=== PATIENT | male | born 1975 | race African-American/Black ===

== ENCOUNTER 2017-10-01 10:51 | Emergency (ER) | payer BC ==
[2017-10-01] MEDS ORDERED: ASPIRIN 81 MG TABLET, CHEWABLE PO ONE (11:00)
[2017-10-01 11:02] VITALS: BP 143/100
[2017-10-01] MEDS ORDERED: TENECTEPLASE INJ 50 MG KIT IV ONE (11:08)
[2017-10-01] MEDS ORDERED: CLOPIDOGREL BISULFATE 300 MG TABLET PO ONE (11:08)
[2017-10-01] MEDS ORDERED: NITROGLYCERIN 0.4 MG/TAB 25 TAB/BOTTLE ONE (11:12)
[2017-10-01] MEDS: NITROGLYCERIN 0.4 MG/TAB 25 TAB/BOTTLE SL PRN ×2 (11:14→11:19)
--- NOTE | 2017-10-01 11:14 | ER Document Report ---
ED Cardiac - General Chief Complaint: Chest Pain Stated Complaint: CHEST PAIN Time Seen by Provider: 10/01/17 11:00 Notes: The patient is a 42-year-old male who presents with 20 minutes of left-sided chest pressure with radiation up to the right shoulder. He was at work when this started to occur. He was not exerting himself. He has never had this in the past and does not take any medications. Denies back pain, numbness, tingling, fever, shortness of breath, leg swelling, syncope, nausea or vomiting. TRAVEL OUTSIDE OF THE [place] IN LAST 30 DAYS: No - Related Data Allergies/Adverse Reactions: peanut [Peanut] Allergy (Severe, Verified 10/01/17 10:53) Past Medical History - General Information source: Patient - Social History Smoking Status: Current Every Day Smoker Frequency of alcohol use: Occasional Drug Abuse: None Family History: Reviewed & Not Pertinent - Immunizations Hx Diphtheria, Pertussis, Tetanus Vaccination: Yes - Administered in ED Review of Systems - Review of Systems Notes: REVIEW OF SYSTEMS: CONSTITUTIONAL: -fevers, -chills EENT: -eye pain, -difficulty swallowing, -nasal congestion CARDIOVASCULAR: +chest pain, -syncope. RESPIRATORY: -cough, -SOB GASTROINTESTINAL: -abdominal pain, -nausea, -vomiting, -diarrhea GENITOURINARY: -dysuria, -hematuria MUSCULOSKELETAL: -back pain, -neck pain SKIN: -rash or skin lesions. HEMATOLOGIC: -easy bruising or bleeding. LYMPHATIC: -swollen, enlarged glands. NEUROLOGICAL: -altered mental status or loss of consciousness, -headache, - neurologic symptoms PSYCHIATRIC: -anxiety, -depression. ALL OTHER SYSTEMS REVIEWED AND NEGATIVE. Physical Exam - Vital signs Vitals: Temp Pulse Resp BP Pulse Ox 97.6 F 79 22 H 143/100 H 100 10/01/17 11:00 10/01/17 11:00 10/01/17 11:00 10/01/17 11:10/01/17 11:00 - Notes Notes: PHYSICAL EXAMINATION: GENERAL: Uncomfortable. HEAD: Atraumatic, normocephalic. EYES: Pupils equal round and reactive to light, extraocular movements intact, sclera anicteric, conjunctiva are normal. ENT: nares patent, oropharynx clear without exudates. Moist mucous membranes. NECK: Normal range of motion, supple without lymphadenopathy LUNGS: Breath sounds clear to auscultation bilaterally and equal. No wheezes rales or rhonchi. HEART: Regular rate and rhythm without murmurs ABDOMEN: Soft, nontender, normoactive bowel sounds. No guarding, no rebound. No masses appreciated. EXTREMITIES: Normal range of motion, no pitting or edema. No cyanosis. Strong distal pulses. NEUROLOGICAL: Cranial nerves grossly intact. Normal speech, normal gait. Normal sensory and motor exams. PSYCH: Normal mood, normal affect. SKIN: Warm, Dry, normal turgor, no rashes or lesions noted. Course - Re-evaluation Re-evalutation: Patient seen immediately after EKG, which showed an anterior STEMI with reciprocal changes. Symptoms are not consistent with aortic dissection at this time. Patient has no bleeding risk and he was verbally consented for TNKase. Requires transfer to facility with interventional cardiology. 10/01/17 11:05 Spoke to [facility] about STEMI. Awaiting callback. 10/01/17 11:[address] Cleveland ([facility] Client Hr Manager) and he has accepted the patient. Patient will be able to fly by helicopter. Because the patient will be in the window for label printing machinist intervention, he recommends holding off on TNKase at this time. Spoke to the patient about this and he understands. After a single nitro, his pain has subsided. Repeat EKG shows worsening ST elevations in the anterior and the lateral leads. Pt remains HD stable. 10/01/17 11:38 Transport in ED. Pt's pain improved after nitro, but still present. Fentanyl ordered and patient stable for transport. He is going immediately to [facility]'s label printing machinist. - Vital Signs Vital signs: Temp Pulse Resp BP Pulse Ox 97.6 F 79 22 H 143/100 H 100 10/01/17 11:00 10/01/17 11:00 10/01/17 11:00 10/01/17 11:00 10/01/17 11:00 - Laboratory Result Diagrams: 10/01/17 11:06 10/01/17 11:06 - Diagnostic Test Radiology reviewed: Image reviewed, Reports reviewed Radiology results interpreted by me: CXR: NAD - EKG Interpretation by Me EKG shows normal: Sinus rhythm, [place], Intervals, QRS Complexes Additional EKG results interpreted by me: ST Elevation in V2-V4 with reciprocal changes in III and aVF. Critical Care Note - Critical Care Note Total time excluding time spent on procedures (mins): 35 Discharge - Discharge Clinical Impression: STEMI (ST elevation myocardial infarction) Qualifiers: Involved coronary artery: unspecified coronary artery Qualified Code(s): I21.3 - ST elevation (STEMI) myocardial infarction of unspecified site Condition: Serious Disposition: [facility] Referrals: SALVATORE URRUTIA FNP-C [COMMUNITY BASED STAFF] - Follow up as needed
[2017-10-01 11:20] LABS: INTERNATIONAL RATION (INR) 1.05; PARTIAL THROMBOPLASTIN TIME 26.1 SEC (23.5-35.8); PROTHROMBIN TIME 14.2 SEC (11.4-15.4)
[2017-10-01] MEDS ORDERED: NITROGLYCERIN 2% OINTMENT 1 GM PACKET ONE (11:22)
[2017-10-01 11:24] LABS: HEMATOCRIT 34.3 % (37.9-51.0); HEMOGLOBIN 10.2 g/dL (13.5-17.0); MEAN CORPUSCULAR HEMOGLOBIN 18.6 pg (27.0-33.4); MEAN CORPUSCULAR HGB CONC 29.7 g/dL (32.0-36.0); PLATELET COUNT 315 10^3/uL (150-450); RED BLOOD COUNT 5.48 10^6/uL (4.35-5.55); WHITE BLOOD COUNT 5.7 10^3/uL (4.0-10.5)
[2017-10-01] MEDS ORDERED: ENOXAPARIN SODIUM INJ 100 MG/1 ML DISP.SYRIN SUBCUT ONE (11:24)
[2017-10-01] MEDS ORDERED: FENTANYL CITRATE INJ/PF 100 MCG/2 ML AMPUL IV ONE (11:28)
[2017-10-01 11:44] LABS: ANION GAP 17 (5-19); BLOOD UREA NITROGEN 12 mg/dL (7-20); CALCIUM 9.7 mg/dL (8.4-10.2); CARBON DIOXIDE 20 mmol/L (22-30); CHLORIDE 106 mmol/L (98-107); CREATINE KINASE 854 U/L (55-170); GLUCOSE 189 mg/dL (75-110); POTASSIUM 4.2 mmol/L (3.6-5.0); SODIUM 142.5 mmol/L (137-145)
[2017-10-01] MEDS ORDERED: ENOXAPARIN SODIUM INJ 30 MG/0.3 ML DISP.SYRIN IV ONE (11:52)
[2017-10-01 11:53] LABS: CREATINE KINASE MB 5.32 ng/mL (<4.55)
[2017-10-01 11:56] LABS: MEAN CORPUSCULAR VOLUME 63 fl (80-97)
[2017-10-01 11:57] LABS: TROPONIN I 0.323 ng/mL
[2017-10-01] MEDS ORDERED: NITROGLYCERIN 2% OINTMENT 1 GM PACKET TP ONE (11:57)
[2017-10-01] MEDS ORDERED: ENOXAPARIN SODIUM INJ 30 MG/0.3 ML DISP.SYRIN ONE (12:00)
[2017-10-01] MEDS ORDERED: CLOPIDOGREL BISULFATE 300 MG TABLET ONE (12:00)
[2017-10-01] MEDS ORDERED: ASPIRIN 81 MG TABLET, CHEWABLE ONE (12:00)
--- NOTE | 2017-10-01 12:24 | EKG REPORT ---
SEVERITY:- ABNORMAL ECG - SINUS RHYTHM ST ELEVATION, PROBABLE ANTERIOR WALL INJURY STEMI CLINICAL CORRELATION AND CARDIC BIOMARKERS NEEDED. : Confirmed by: Kamron Travis MD 01-Oct-2017 12:24:15
--- NOTE | 2017-10-01 12:26 | EKG REPORT ---
SEVERITY:- ABNORMAL ECG - SINUS RHYTHM ST ELEV, LIKELY STEMI ANT WALL : Confirmed by: Kamron Travis MD 01-Oct-2017 12:25:11
--- NOTE | 2017-10-01 12:36 | RADIOLOGY REPORT (SQ) ---
EXAM DESCRIPTION: CHEST SINGLE VIEW COMPLETED DATE/TIME: 10/01/2017 11:14 am REASON FOR STUDY: Chest Pain r/o MD COMPARISON: None. EXAM PARAMETERS: NUMBER OF VIEWS: One view. TECHNIQUE: Single frontal radiographic view of the chest acquired. RADIATION DOSE: NA LIMITATIONS: None. FINDINGS: LUNGS AND PLEURA: No opacities, masses or pneumothorax. No pleural effusion. MEDIASTINUM AND HILAR STRUCTURES: No masses. Contour normal. HEART AND VASCULAR STRUCTURES: Heart normal in size. Normal vasculature. BONES: No acute findings. HARDWARE: None in the chest. OTHER: No other significant finding. IMPRESSION: NO ACUTE RADIOGRAPHIC FINDING IN THE CHEST. TECHNICAL DOCUMENTATION: JOB ID: [id number] [employer]- All Rights Reserved Reading location - IP/workstation name: [email or web address]
[2017-10-05 09:02] LABS: PATH REVIEW PATHOLOGIST REVIEWED
== END 2017-10-01 11:42 | disposition short-term general hospital (02) ==
LOC: ER 10:51
DX: I21.3 ST elevation (STEMI) myocardial infarction of unspecified site (principal); R07.9 Chest pain, unspecified; F17.200 Nicotine dependence, unspecified, uncomplicated; Z91.010 Allergy to peanuts
CPT/HCPCS: 93005; 99291; 96372; 96374; 36415; 82553; 82550; 85027; 85610; 85730; 80048; 84484; 71045; 93010; J3490; J3010; J1650 ×2

== ENCOUNTER 2018-06-04 09:05 | Emergency (ER) | payer BC, OTHER ==
--- NOTE | 2018-06-04 09:42 | ER Document Report ---
ED General - General Chief Complaint: Rectal Bleeding Stated Complaint: RECTAL BLEEDING Time Seen by Provider: 06/04/18 09:26 Primary Care Provider: RIVERA GALLARDO [Primary Care Provider] - Follow up as needed Notes: 42-year-old male with history of acute myocardial infarction in October 2017 and chronic anemia presents to the emergency department from the [facility] for abnormal blood work. He states that he had labs drawn in [place] and results prompted the [facility] to recommend that he seek treatment in the emergency department. Patient notes that he does have rectal bleeding. He states that there is blood in the toilet that turns the water red. He denies seeing any blood within his stool. He does have a history of hemorrhoids. He does complain of straining and periodic pain with bowel movements. He complains of occasional dizziness and lightheadedness. He denies any shortness of breath or chest pain. He denies any nausea or vomiting. He does complain of bilateral hand tingling that is intermittent in nature. Patient is on Brilinta for his heart attack. TRAVEL OUTSIDE OF THE [place] IN LAST 30 DAYS: No - Related Data Allergies/Adverse Reactions: peanut [Peanut] Allergy (Severe, Verified 06/04/18 09:15) Past Medical History - Social History Smoking Status: Never Smoker Family History: Reviewed & Not Pertinent Renal/ Medical History: Denies: Hx Peritoneal Dialysis - Immunizations Hx Diphtheria, Pertussis, Tetanus Vaccination: Yes - Administered in ED Review of Systems - Review of Systems Constitutional: See HPI EENT: No symptoms reported Cardiovascular: See HPI Respiratory: See HPI Gastrointestinal: See HPI Genitourinary: No symptoms reported Male Genitourinary: No symptoms reported Musculoskeletal: No symptoms reported Skin: No symptoms reported Hematologic/Lymphatic: No symptoms reported Neurological/Psychological: No symptoms reported Physical Exam - Vital signs Vitals: Temp Pulse Resp BP Pulse Ox 98.2 F 73 18 119/77 100 06/04/18 09:18 06/04/18 09:18 06/04/18 09:18 06/04/18 09:18 06/04/18 09:18 - Notes Notes: PHYSICAL EXAMINATION: Reviewed vital signs and charting by RN GENERAL: Alert, interacts well. No acute distress. HEAD: Normocephalic, atraumatic. EYES: Pupils equal, round. Extraocular movements intact. ENT: Oral mucosa moist, tongue midline. NECK: Full range of motion. Trachea midline. LUNGS: Clear to auscultation bilaterally, no wheezes, rales, or rhonchi. No respiratory distress. HEART: Regular rate and rhythm. No murmur ABDOMEN: soft, non-tender. Non-distended. Bowel sounds present in all 4 quadrants. no McBurney's point tenderness, no Cleveland sign. EXTREMITIES: Moves all 4 extremities spontaneously. No edema, No cyanosis. NEUROLOGICAL: Alert and oriented. Normal speech. PSYCH: Normal affect, normal mood. SKIN: Warm, dry, normal turgor. No rashes or lesions noted. Course - Re-evaluation Re-evalutation: 06/04/18 09:41 Well-appearing 42-year-old male with history of heart attack last year on Brilinta presents for abnormal labs. He does complain of history of hemorrhoids and blood every time he has a bowel movement in the toilet. On exam there was a nonthrombosed hemorrhoid externally that was visualized. Rectal exam performed with nurse Yelitza in the room. Hemoccult performed and was negative for blood. Plan is to get some basic blood work. 06/04/18 11:08 CBC had hemoglobin of 7.6 with a microcytic anemia. He brought paperwork from May 14, 2018 and his hemoglobin was 7.8. His ferritin level was very low. He has known iron deficiency anemia. I called Dr. Buchanan and he stated patient could follow-up outpatient. No evidence of acute bleeding as he is heme-negative, therefore he is safe and stable to discharge home pending orthostatic vital signs. 06/04/18 11:09 06/04/18 11:28 Orthostatic vital signs were all normal. Patient showing no evidence of hemodynamic instability. Patient is stable for discharge and outpatient follow- up. - Vital Signs Vital signs: Temp Pulse Resp BP Pulse Ox 98.2 F 69 19 108/72 100 06/04/18 09:18 06/04/18 11:23 06/04/18 11:00 06/04/18 11:23 06/04/18 11:00 - Laboratory Result Diagrams: 06/04/18 10:00 06/04/18 10:00 Laboratory results interpreted by me: 06/04/18 06/04/18 10:00 10:00 RBC 3.40 L Hgb 7.6 L Hct 26.0 L MCV 76 L MCH 22.4 L MCHC 29.4 L RDW 19.2 H Chloride 109 H Discharge - Discharge Clinical Impression: Anemia Qualifiers: Anemia type: unspecified type Qualified Code(s): D64.9 - Anemia, unspecified Condition: Good Disposition: HOME, SELF-CARE Additional Instructions: You are seen in the emergency department this morning for abnormal blood work. Your blood work does show that you are anemic. It was above the transfusion threshold and because you had no symptoms and your vital signs were stable you are safe to discharge. If you do become lightheaded, pale, ashen, dizzy, or you pass out please immediately return to the emergency department. We have given you information for the surgeon that you should follow-up outpatient to discuss follow-up colonoscopy. Please continue to take your iron supplements. Please increase your fiber intake, increase her water consumption, and take a stool softener to help with your straining. If you have any other concerns please return to the emergency department. Referrals: [facility] [Primary Care Provider] - Follow up as needed
[2018-06-04 10:25] LABS: ABSOLUTE BASOPHILS # (AUTO) 0.1 10^3/uL (0.0-0.2); ABSOLUTE EOSINOPHILS # (AUTO) 0.1 10^3/uL (0.0-0.6); ABSOLUTE LYMPHOCYTES (AUTO) 0.9 10^3/uL (0.5-4.7); ABSOLUTE MONOCYTES (AUTO) 0.4 10^3/uL (0.1-1.4); BASOPHILS % (AUTO) 1.5 % (0-2); EOSINOPHILS % (AUTO) 1.5 % (0-6); LYMPHOCYTES % (AUTO) 19.7 % (13-45); MEAN CORPUSCULAR HEMOGLOBIN 22.4 pg (27.0-33.4); MEAN CORPUSCULAR HGB CONC 29.4 g/dL (32.0-36.0); MEAN CORPUSCULAR VOLUME 76 fl (80-97); MONOCYTES % (AUTO) 8.2 % (3-13); PLATELET COUNT 307 10^3/uL (150-450); RED CELL DISTRIBUTION WIDTH 19.2 % (11.5-14.0); SEGMENTED NEUTROPHILS % (AUTO) 69.1 % (42-78); TOTAL CELLS COUNTED % (AUTO) 100 %; WHITE BLOOD COUNT 4.4 10^3/uL (4.0-10.5)
[2018-06-04 10:27] LABS: HEMOGLOBIN 7.6 g/dL (13.5-17.0)
[2018-06-04 10:46] LABS: ALANINE AMINOTRANSFERASE 42 U/L (21-72); ALBUMIN 4.5 g/dL (3.5-5.0); ALKALINE PHOSPHATASE 41 U/L (38-126); ANION GAP 9 (5-19); ASPARTATE AMINO TRANSFERASE 50 U/L (17-59); BILIRUBIN,DIRECT 0.2 mg/dL (0.0-0.4); BILIRUBIN,TOTAL 0.3 mg/dL (0.2-1.3); BLOOD UREA NITROGEN 15 mg/dL (7-20); CALCIUM 8.9 mg/dL (8.4-10.2); CARBON DIOXIDE 24 mmol/L (22-30); CHLORIDE 109 mmol/L (98-107); GLUCOSE 102 mg/dL (75-110); POTASSIUM 4.2 mmol/L (3.6-5.0); SODIUM 141.5 mmol/L (137-145); TOTAL PROTEIN 6.9 g/dL (6.3-8.2)
[2018-06-04 11:41] VITALS: BP 115/93
== END 2018-06-04 11:44 | disposition home or self-care (01) ==
LOC: ER 09:05
DX: D50.9 Iron deficiency anemia, unspecified (principal); K62.5 Hemorrhage of anus and rectum; R42 Dizziness and giddiness; R20.2 Paresthesia of skin; K64.4 Residual hemorrhoidal skin tags; I25.2 Old myocardial infarction; Z79.02 Long term (current) use of antithrombotics/antiplatelets; Z91.010 Allergy to peanuts
CPT/HCPCS: 36415; 80053; 85025; 99283

== ENCOUNTER 2018-06-28 16:26 | Emergency (ER) | payer OTHER ==
--- NOTE | 2018-06-28 17:08 | ER Document Report ---
ED Medical Screen (RME) - General Chief Complaint: Abnormal Lab Results Stated Complaint: ABNORMAL LABS Time Seen by Provider: 06/28/18 17:06 Primary Care Provider: RIVERA GALLARDO [Primary Care Provider] - Follow up as needed Mode of Arrival: Ambulatory Information source: Patient Notes: Patient presents after recent blood work showed a hemoglobin of 6.7. Patient has bright red blood per rectum for several months secondary to hemorrhoids. I have greeted and performed a rapid initial assessment of this patient. A comprehensive ED assessment and evaluation of the patient, analysis of test results and completion of medical decision making process we will be contacted by additional ED providers. PHYSICAL EXAMINATION: Vital signs reviewed GENERAL: Well-appearing, well-nourished and in no acute distress. LUNGS: No respiratory distress Musculoskeletal: Normal range of motion NEUROLOGICAL: Normal speech, normal gait. PSYCH: Normal mood, normal affect. SKIN: Warm, Dry, normal turgor, no rashes or lesions noted. TRAVEL OUTSIDE OF THE [place] IN LAST 30 DAYS: No - HPI Onset: Other Quality of pain: No pain Associated Symptoms: None Exacerbated by: Denies Relieved by: Denies Similar symptoms previously: Yes Recently seen / treated by doctor: Yes - Related Data Smoking: Non-smoker Frequency of alcohol use: None Drug Abuse: None Allergies/Adverse Reactions: peanut [Peanut] Allergy (Severe, Verified 06/04/18 09:15) Past Medical History - Social History Frequency of alcohol use: Occasional Drug Abuse: None - Past Medical History Cardiac Medical History: Reports: Hx Heart Attack Renal/ Medical History: Denies: Hx Peritoneal Dialysis Past Surgical History: Reports: Hx Cardiac Catheterization, Hx Cardiac Surgery - stent x1 - Immunizations Hx Diphtheria, Pertussis, Tetanus Vaccination: Yes - Administered in ED Physical Exam - Vital signs Vitals: Temp Pulse Resp BP Pulse Ox 99.0 F 92 16 101/55 L 100 06/28/18 16:33 06/28/18 16:33 06/28/18 16:33 06/28/18 16:33 06/28/18 16:33 Course - Vital Signs Vital signs: Temp Pulse Resp BP Pulse Ox 99.0 F 92 16 101/55 L 100 06/28/18 16:33 06/28/18 16:33 06/28/18 16:33 06/28/18 16:33 06/28/18 16:33 Doctor's Discharge - Discharge Referrals: [facility] [Primary Care [facility]] - Follow up as needed
[2018-06-28 17:20] LABS: ABSOLUTE LYMPHOCYTES (AUTO) 0.6 10^3/uL (0.5-4.7); ABSOLUTE MONOCYTES (AUTO) 0.4 10^3/uL (0.1-1.4); ABSOLUTE NEUT (AUTO) 2.5 10^3/uL (1.7-8.2); BASOPHILS % (AUTO) 1.3 % (0-2); EOSINOPHILS % (AUTO) 1.1 % (0-6); LYMPHOCYTES % (AUTO) 17.5 % (13-45); MEAN CORPUSCULAR HEMOGLOBIN 22.2 pg (27.0-33.4); MEAN CORPUSCULAR HGB CONC 28.9 g/dL (32.0-36.0); MEAN CORPUSCULAR VOLUME 77 fl (80-97); MONOCYTES % (AUTO) 10.2 % (3-13); PLATELET COUNT 235 10^3/uL (150-450); RED BLOOD COUNT 2.99 10^6/uL (4.35-5.55); RED CELL DISTRIBUTION WIDTH 17.4 % (11.5-14.0); SEGMENTED NEUTROPHILS % (AUTO) 69.9 % (42-78); TOTAL CELLS COUNTED % (AUTO) 100 %; WHITE BLOOD COUNT 3.6 10^3/uL (4.0-10.5)
[2018-06-28 17:21] LABS: INTERNATIONAL RATION (INR) 1.04; PROTHROMBIN TIME 14.1 SEC (11.4-15.4)
[2018-06-28 17:26] LABS: HEMOGLOBIN 6.7 g/dL (13.5-17.0)
[2018-06-28] MEDS ORDERED: FUROSEMIDE INJ/PF 20 MG/2 ML SDV IV PRN (17:28)
[2018-06-28] MEDS ORDERED: ACETAMINOPHEN 325 MG TABLET PO PRN (17:28)
[2018-06-28] MEDS ORDERED: NORMAL SALINE 250 ML IV PRN ×2 (17:28)
[2018-06-28] MEDS ORDERED: DIPHENHYDRAMINE HCL 25 MG CAPSULE PO PRN (17:28)
[2018-06-28 17:30] LABS: PARTIAL THROMBOPLASTIN TIME 28.1 SEC (23.5-35.8)
[2018-06-28 17:31] LABS: ANION GAP 9 (5-19); BLOOD UREA NITROGEN 10 mg/dL (7-20); CALCIUM 9.2 mg/dL (8.4-10.2); CARBON DIOXIDE 25 mmol/L (22-30); CHLORIDE 107 mmol/L (98-107); GLUCOSE 102 mg/dL (75-110); POTASSIUM 3.9 mmol/L (3.6-5.0); SODIUM 141.3 mmol/L (137-145)
--- NOTE | 2018-06-28 18:58 | ER Document Report ---
ED General - General Chief Complaint: Abnormal Lab Results Stated Complaint: ABNORMAL LABS Time Seen by Provider: 06/28/18 17:06 Primary Care Provider: [facility] [Primary [facility]] - Follow up as needed Mode of Arrival: Ambulatory Information source: Patient TRAVEL OUTSIDE OF THE [place] IN LAST 30 DAYS: No - HPI Onset: Just prior to arrival Onset/Duration: Sudden Quality of pain: No pain Severity: None Pain Level: Denies Associated symptoms: None Exacerbated by: Denies Relieved by: Denies Similar symptoms previously: Yes Recently seen / treated by doctor: Yes - Related Data Allergies/Adverse Reactions: peanut [Peanut] Allergy (Severe, Verified 06/04/18 09:15) Past Medical History - General Information source: Patient - Social History Smoking Status: Current Every Day Smoker Frequency of alcohol use: Occasional Drug Abuse: None Family History: Reviewed & Not Pertinent Patient has suicidal ideation: No Patient has homicidal ideation: No - Past Medical History Cardiac Medical History: Reports: Hx Heart Attack Renal/ Medical History: Denies: Hx Peritoneal Dialysis Past Surgical History: Reports: Hx Cardiac Catheterization, Hx Cardiac Surgery - stent x1 - Immunizations Hx Diphtheria, Pertussis, Tetanus Vaccination: Yes - Administered in ED Review of Systems - Review of Systems Constitutional: No symptoms reported EENT: No symptoms reported Cardiovascular: No symptoms reported Respiratory: No symptoms reported Gastrointestinal: No symptoms reported Genitourinary: No symptoms reported Male Genitourinary: No symptoms reported Musculoskeletal: No symptoms reported Skin: No symptoms reported Hematologic/Lymphatic: No symptoms reported Neurological/Psychological: No symptoms reported -: Yes All other systems reviewed and negative Physical Exam - Vital signs Vitals: Temp Pulse Resp BP Pulse Ox 99.0 F 92 16 101/55 L 100 06/28/18 16:33 06/28/18 16:33 06/28/18 16:33 06/28/18 16:33 06/28/18 16:33 Interpretation: Normal - General General appearance: Appears well, Alert - HEENT Head: Normocephalic, Atraumatic Eyes: Normal Pupils: PERRL - Respiratory Respiratory status: No respiratory distress Chest status: Nontender Breath sounds: Normal Chest palpation: Normal - Cardiovascular Rhythm: Regular Heart sounds: Normal auscultation Murmur: No - Abdominal Inspection: Normal Distension: No distension Bowel sounds: Normal Tenderness: Nontender Organomegaly: No organomegaly - Rectal Tenderness: No Stool: Heme negative Hemorrhoids: Internal Prostate: Normal Notes: Employment Interviewer was Ms. Aminata RN. - Back Back: Normal, Nontender - Extremities General upper extremity: Normal inspection, Nontender, Normal color, Normal ROM, Normal temperature General lower extremity: Normal inspection, Nontender, Normal color, Normal ROM, Normal temperature, Normal weight bearing. No: Jennifer's sign - Neurological Neuro grossly intact: Yes Cognition: Normal Orientation: AAOx4 Ronda Coma Scale Eye Opening: Spontaneous Ronda Coma Scale Verbal: Oriented Marilou Coma Scale Motor: Obeys Commands Ronda Coma Scale Total: 15 Speech: Normal Motor strength normal: LUE, RUE, LLE, RLE Sensory: Normal - Psychological Associated symptoms: Normal affect, Normal mood - Skin Skin Temperature: Warm Skin Moisture: Dry Skin Color: Normal Course - Vital Signs Vital signs: Temp Pulse Resp BP Pulse Ox 99.2 F 78 17 120/67 99 06/28/18 22:22 06/28/18 20:20 06/28/18 21:16 06/28/18 21:16 06/28/18 21:16 - Laboratory Result Diagrams: 06/28/18 17:01 06/28/18 17:01 Laboratory results interpreted by me: 06/28/18 06/28/18 17:01 17:01 WBC 3.6 L RBC 2.99 L Hgb 6.7 L Hct 23.0 L MCV 77 L MCH 22.2 L MCHC 28.9 L RDW 17.4 H Crossmatch See Detail - Transfer of Care Care transferred to following provider: Patient was transferred to Notes: 06/28/18 22:57 Patient was transferred to Dr. Villaseñor at the end of my shift, pending blood transfusion and repeat CBC. He will be reevaluated after the blood transfusion and CBC prior to disposition by Dr. Villaseñor. Discharge - Discharge Clinical Impression: Symptomatic anemia, Internal hemorrhoids Condition: Stable Referrals: [facility] [Primary [facility]] - Follow up as needed
[2018-06-29 02:06] LABS: ABSOLUTE BASOPHILS # (AUTO) 0.1 10^3/uL (0.0-0.2); ABSOLUTE EOSINOPHILS # (AUTO) 0.1 10^3/uL (0.0-0.6); ABSOLUTE LYMPHOCYTES (AUTO) 1.4 10^3/uL (0.5-4.7); ABSOLUTE MONOCYTES (AUTO) 0.4 10^3/uL (0.1-1.4); ABSOLUTE NEUT (AUTO) 2.1 10^3/uL (1.7-8.2); BASOPHILS % (AUTO) 1.5 % (0-2); EOSINOPHILS % (AUTO) 2.1 % (0-6); HEMATOCRIT 24.4 % (37.9-51.0); LYMPHOCYTES % (AUTO) 34.5 % (13-45); MEAN CORPUSCULAR HEMOGLOBIN 24.2 pg (27.0-33.4); MEAN CORPUSCULAR VOLUME 78 fl (80-97); MONOCYTES % (AUTO) 9.5 % (3-13); PLATELET COUNT 183 10^3/uL (150-450); RED BLOOD COUNT 3.12 10^6/uL (4.35-5.55); RED CELL DISTRIBUTION WIDTH 17.7 % (11.5-14.0); SEGMENTED NEUTROPHILS % (AUTO) 52.4 % (42-78); TOTAL CELLS COUNTED % (AUTO) 100 %; WHITE BLOOD COUNT 4.1 10^3/uL (4.0-10.5)
[2018-06-29 02:09] LABS: HEMOGLOBIN 7.6 g/dL (13.5-17.0)
--- NOTE | 2018-06-29 03:49 | ER Document Report ---
ED General - General Chief Complaint: Abnormal Lab Results Stated Complaint: ABNORMAL LABS Time Seen by Provider: 06/28/18 17:06 Primary Care Provider: KERON FERNANDES MD [ACTIVE STAFF] - Follow up as needed [facility] [Primary [facility]] - Follow up as needed Mode of Arrival: Ambulatory TRAVEL OUTSIDE OF THE [place] IN LAST 30 DAYS: No - HPI Notes: Patient presents emergency department for evaluation. The patient was initially seen by emergency physician Dr. Millard. Please refer to his note to correlate with this 1. In short the patient has a history of anemia that was originally diagnosed back in 2016. He had colonoscopy and extensive internal hemorrhoids were found. He was in the middle of getting this treated when he lost his insurance. He has had intermittent bleeding since then. He denies any active bleeding at this time, though he did have bleeding in the last several days. He often passes large clots. His hemoglobins have been low in the past. He is currently on iron. He is getting workup from his primary care physician at this time. They are planning a repeat colonoscopy as well as referral on to hematology/oncology. He denies any pain at this time. He states right now he feels tired. Otherwise he states he has no chest pain, no dizziness, no difficulty breathing. - Related Data Allergies/Adverse Reactions: peanut [Peanut] Allergy (Severe, Verified 06/04/18 09:15) Past Medical History - General Information source: Patient - Social History Smoking Status: Current Every Day Smoker Frequency of alcohol use: Occasional Drug Abuse: None Family History: Reviewed & Not Pertinent Patient has suicidal ideation: No Patient has homicidal ideation: No - Past Medical History Cardiac Medical History: Reports: Hx Heart Attack Renal/ Medical History: Denies: Hx Peritoneal Dialysis Past Surgical History: Reports: Hx Cardiac Catheterization, Hx Cardiac Surgery - stent x1 - Immunizations Hx Diphtheria, Pertussis, Tetanus Vaccination: Yes - Administered in ED Review of Systems - Review of Systems Constitutional: No symptoms reported Cardiovascular: No symptoms reported Respiratory: No symptoms reported Gastrointestinal: See HPI Physical Exam - Vital signs Vitals: Temp Pulse Resp BP Pulse Ox 99.0 F 92 16 101/55 L 100 06/28/18 16:33 06/28/18 16:33 06/28/18 16:33 06/28/18 16:33 06/28/18 16:33 - Notes Notes: Vital signs reviewed, please refer to chart. Patient is normocephalic, atraumatic. Pupils equal round, reactive to light. Neck is supple without meningismus. Heart is regular rate and rhythm. Lungs are clear to auscultation bilaterally. Abdomen is soft, nontender, normoactive bowel sounds throughout. Extremities without cyanosis, clubbing, edema. Peripheral pulses are equal. Skin is warm and dry. Patient is awake, alert, neurological exam is nonfocal. Course - Re-evaluation Re-evalutation: 06/29/18 04:45 She was initially seen and examined by Dr. Millard. Plan was to transfuse the patient and recheck his hemoglobin. Unfortunately his hemoglobin only came up slightly, he still remains under 8. He has been this low in the past. He is asymptomatic. He already has plans to follow-up with his primary care physician as well as gastroenterology. He is already being referred on to hematology. I will send him on to her loom setter in case he has difficulty getting in. He is to continue his iron. If he develops chest pain, increased bleeding, or worsening symptoms of any sort, he is to return immediately to the emergency department for evaluation. - Vital Signs Vital signs: Temp Pulse Resp BP Pulse Ox 99.2 F 70 21 H 108/76 97 06/29/18 01:30 06/29/18 01:31 06/29/18 03:01 06/29/18 03:01 06/29/18 03:01 - Laboratory Result Diagrams: 06/29/18 01:50 06/28/18 17:01 Laboratory results interpreted by me: 06/28/18 06/28/18 06/29/18 17:01 17:01 01:50 WBC 3.6 L RBC 2.99 L 3.12 L Hgb 6.7 L 7.6 L Hct 23.0 L 24.4 L MCV 77 L 78 L MCH 22.2 L 24.2 L MCHC 28.9 L 31.0 L RDW 17.4 H 17.7 H Crossmatch See Detail Discharge - Discharge Clinical Impression: Symptomatic anemia, Internal hemorrhoids Condition: Stable Disposition: HOME, SELF-CARE Instructions: Anemia ([facility]), Hemorrhoids ([facility]) Additional Instructions: See your primary care physician this week. You need to see a loom setter/oncologist as soon as possible. Follow-up as referred by her primary care physician, or with our loom setter here. Return to the emergency department with worsening or new concerning symptoms of any sort. Referrals: [facility] [Primary Care Provider] - Follow up as needed KERON FERNANDES MD [ACTIVE STAFF] - Follow up as needed
[2018-06-29 05:32] VITALS: BP 107/67
== END 2018-06-29 05:32 | disposition home or self-care (01) ==
LOC: ER 16:26
DX: D64.9 Anemia, unspecified (principal); K64.8 Other hemorrhoids; I25.2 Old myocardial infarction; F17.200 Nicotine dependence, unspecified, uncomplicated; Z91.010 Allergy to peanuts
CPT/HCPCS: 99283; 86900; 86901; 36415; 36430; 86850; 85025; 85610; 85730; 80048; 86920; P9016

== ENCOUNTER 2018-10-24 17:32 | Emergency (ER) | payer OTHER ==
[2018-10-24] MEDS ORDERED: HYDROCODONE/ACETAMINOPHEN 5-325 MG (6 TAB/ER DISP) PO PRN (18:51)
[2018-10-24] MEDS ORDERED: PENICILLIN V POTASSIUM 500 MG TABLET PO ONE (18:51)
[2018-10-24] MEDS ORDERED: LIDOCAINE 2% VISCOUS SOLN 20 ML UDCUP PO ONE (18:54)
--- NOTE | 2018-10-24 18:54 | ER Document Report ---
HPI - HPI Patient complains to provider of: Dental pain Time Seen by Provider: 10/24/18 18:45 Onset: Other - 10 days Onset/Duration: Persistent Quality of pain: Achy Pain Level: 4 Context: Patient presents complaining of dental pain to the left lower jaw for the past 1 0 days. Patient denies any fever. Patient does report subtle swelling to left lower jaw area. Associated Symptoms: Other - Left lower jaw tenderness. denies: Fever Exacerbated by: Denies Relieved by: Denies Similar symptoms previously: No Recently seen / treated by doctor: No - ROS ROS below otherwise negative: Yes Systems Reviewed and Negative: Yes All other systems reviewed and negative - CONSTITUTIONAL Constitutional: DENIES: Fever - EENT Notes: Left lower jaw dental pain - NEURO Neurology: DENIES: Headache - GASTROINTESTINAL Gastrointestinal: DENIES: Nausea, Patient vomiting - DERM Skin Color: Normal Skin Problems: None Past Medical History - General Information source: Patient - Social History Smoking Status: Current Every Day Smoker Smoking Education Provided: Yes Frequency of alcohol use: None Drug Abuse: None Occupation: none Family History: Reviewed & Not Pertinent - Past Medical History Cardiac Medical History: Reports: Hx Heart Attack, Hx Hypercholesterolemia, Hx Hypertension Renal/ Medical History: Denies: Hx Peritoneal Dialysis Past Surgical History: Reports: Hx Cardiac Catheterization, Hx Cardiac Surgery - stent x1 - Immunizations Hx Diphtheria, Pertussis, Tetanus Vaccination: Yes - Administered in ED Vertical Provider Document - CONSTITUTIONAL Agree With Documented VS: Yes Exam Limitations: No Limitations General Appearance: WD/WN, No Apparent Distress - INFECTION CONTROL TRAVEL OUTSIDE OF THE [place] IN LAST 30 DAYS: No - HEENT HEENT: Atraumatic, Normocephalic. negative: Pharyngeal Exudate, Pharyngeal Tenderness, Pharyngeal Erythema, Tympanic Membrane Red, Tympanic Membrane Bulging Mouth Diagram: 1 - Dental decay, gingival tenderness, no abscess, no trismus - NECK Neck: Normal Inspection, Supple. negative: Lymphadenopathy-Left, Lymp hadenopathy-Right - RESPIRATORY Respiratory: Breath Sounds Normal, No Respiratory Distress - CARDIOVASCULAR Cardiovascular: Regular Rate, Regular Rhythm - MUSCULOSKELETAL/EXTREMETIES Musculoskeletal/Extremeties: MAEW - NEURO Level of Consciousness: Awake, Alert, Appropriate Motor/Sensory: No Motor Deficit - DERM Integumentary: Warm, Dry, No Rash Course - Re-evaluation Re-evalutation: 10/24/18 18:53 Patient with dental decay, no trismus, no abscess, no concern for Troy's angina. Patient encouraged to follow-up with dental care provider for further management. - Vital Signs Vital signs: Temp Pulse Resp BP Pulse Ox 98.5 F 77 16 118/78 98 10/24/18 18:04 10/24/18 18:04 10/24/18 18:04 10/24/18 18:04 10/24/18 18:04 Discharge - Discharge Clinical Impression: Toothache Condition: Stable Disposition: HOME, SELF-CARE Instructions: Oral Narcotic Medication ([facility]), Penicillin V K ([facility]), Toothache ( [facility]) Additional Instructions: Return immediately for any new or worsening symptoms Followup with your dental care provider, call tomorrow to make a followup appointment Prescriptions: Penicillin V Potassium [Penicillin Vk 500 mg Tablet] 500 mg PO BID #20 tablet Forms: Smoking Cessation Education Referrals: [facility] [Primary Care [facility]] - Follow up as needed [facility] [Provider Group] - Follow up as needed
[2018-10-24 20:12] VITALS: BP 112/65
== END 2018-10-24 20:57 | disposition home or self-care (01) ==
LOC: ER 17:32
DX: K08.89 Other specified disorders of teeth and supporting structures (principal); R68.84 Jaw pain; F17.200 Nicotine dependence, unspecified, uncomplicated; I10 Essential (primary) hypertension
CPT/HCPCS: 99282; J3490

== ENCOUNTER 2018-11-09 17:20 | Emergency (ER) | payer OTHER ==
[2018-11-09 17:48] VITALS: BP 141/70
--- NOTE | 2018-11-09 17:54 | ER Document Report ---
ED General - General Chief Complaint: Toothache Stated Complaint: JAW SWOLLEN Time Seen by Provider: 11/09/18 17:53 Primary Care Provider: Dariela Rodriguez [facility] [Provider Group] - Follow up tomorrow [facility]Primary [facility] Provider[facility] - Follow up tomorrow TRAVEL OUTSIDE OF THE [place] IN LAST 30 DAYS: No - HPI Notes: 43 year old male to the ED with C/O toothache and left lower jaw swelling that began last night and got worse today. States that several weeks ago, he broke a tooth. States that he some pain then and was placed on ABx. States he thought it was better but has not seen a dentist. States that he just got acutely worse. Denies drooling, fevers, chills, inability to open mouth, difficulty swallowing. - Related Data Allergies/Adverse Reactions: peanut [Peanut] Allergy (Severe, Verified 11/09/18 17:25) Past Medical History - General Information source: Patient - Social History Smoking Status: Former Smoker Frequency of alcohol use: Occasional Drug Abuse: None Family History: Reviewed & Not Pertinent - Past Medical History Cardiac Medical History: Reports: Hx Heart Attack, Hx Hypercholesterolemia, Hx Hypertension Renal/ Medical History: Denies: Hx Peritoneal Dialysis Past Surgical History: Reports: Hx Cardiac Catheterization, Hx Cardiac Surgery - stent x1 - Immunizations Hx Diphtheria, Pertussis, Tetanus Vaccination: Yes - Administered in ED Review of Systems - Review of Systems Constitutional: See HPI. denies: Chills, Fever EENT: Other - dental pain and jaw swelling Cardiovascular: denies: Chest pain, Dizziness, Lightheaded Respiratory: denies: Cough, Hurts to breathe, Short of breath Gastrointestinal: denies: Abdominal pain, Diarrhea, Nausea, Vomiting Genitourinary: No symptoms reported Musculoskeletal: No symptoms reported Skin: No symptoms reported Neurological/Psychological: No symptoms reported -: Yes All other systems reviewed and negative Physical Exam - Vital signs Vitals: Temp Pulse Resp BP Pulse Ox 99.3 F 100 12 141/70 H 97 11/09/18 17:46 11/09/18 17:46 11/09/18 17:46 11/09/18 17:46 11/09/18 17:46 Interpretation: Normal - General General appearance: Appears well, Alert - HEENT Head: Normocephalic Eyes: Normal Conjunctiva: Normal Pupils: PERRL Ears: Normal External canal: Normal Tympanic membrane: Normal Sinus: Normal Nasal: Normal Mouth/Lips: Caries, Dental fracture, Other - there is a broken tooth with john to tooth number #18. on the outside gum there is a noted fluctuant dental abscess. It is not actively draining. there is no zahida's angina, no drooling, airway is grossly patent. Pharynx: Normal. No: Peritonsillar abscess, Retropharyngeal abscess, Uvular edema, Potential airway comprom. Neck: Normal - Respiratory Respiratory status: No respiratory distress Chest status: Nontender Breath sounds: Normal Chest palpation: Normal - Cardiovascular Rhythm: Regular Heart sounds: Normal auscultation Murmur: No - Neurological Neuro grossly intact: Yes Cognition: Normal Orientation: AAOx4 [place] Coma Scale Eye Opening: Spontaneous [place] Coma Scale Verbal: Oriented [place] Coma Scale Motor: Obeys Commands Mar[place] Coma Scale Total: 15 Speech: Normal Motor strength normal: LUE, RUE, LLE, RLE Sensory: Normal - Psychological Associated symptoms: Normal affect, Normal mood - Skin Skin Temperature: Warm Skin Moisture: Dry Skin Color: Normal Course - Re-evaluation Re-evalutation: Impression: Dental abscess, toothache, dental caries, broken tooth. Did attempt simple I and D on patient -- got predominantlhy blood back but patient states it seemed to help. Will start on Clindamycin, give pain meds, urged to follow up with dentist for definitive management. - Vital Signs Vital signs: Temp Pulse Resp BP Pulse Ox 99.3 F 100 12 141/70 H 97 11/09/18 17:46 11/09/18 17:46 11/09/18 17:46 11/09/18 17:46 11/09/18 17:46 Procedures - Incision and Drainage Left Lower Type: Simple Blade size: Other - aspirated with 18 guage needle Incision Method: Incision made with needle Amount/type of drainage: blood for the site, mixed with some scant purulence Discharge - Discharge Clinical Impression: Dental abscess, Toothache, Elevated blood pressure reading Broken tooth Qualifiers: Encounter type: initial encounter Condition: Stable Disposition: HOME, SELF-CARE Instructions: Toothache ([facility]) Additional Instructions: Dental Infection or Abscess You have an infection, perhaps an abscess (pus formation) of the gum around one of your teeth, which is probably decayed. If there is an abscess, it may drain on its own or it may need to be opened or lanced. Severe swelling or drainage around a tooth usually means a deep dental abscess which usually requires evaluation and treatment by a dentist or oral surgeon. Antibiotics may be prescribed while awaiting dental treatment. If you develop high fever with chills, worsening pain, or increasing swelling in the area, see a dentist or oral surgeon immediately or return to the Emergency Department immediately. COMPLETE ALL ANTIBIOTICS. PUSH FLUIDS. RETURN IF WORSE -- FEVERS, WORSENING JAW SWELLING, INABILITY TO OPEN MOUTH, SHORTNESS OF BREATH, DIFFICULTY SWALLOWING. FOLLOW UP WITH DENTIST. Prescriptions: Chlorhexidine Gluconate [Peridex] 15 ml MM BID #200 ml Clindamycin HCl 300 mg PO TID #30 capsule Hydrocodone/Acetaminophen [[place] 5-325 mg Tablet] 1 tab PO Q6H #9 tablet Referrals: [facility] [Primary Care [facility]] - Follow up tomorrow [facility] [Provider Group] - Follow up tomorrow
== END 2018-11-09 18:47 | disposition home or self-care (01) ==
LOC: ER 17:20
DX: K04.7 Periapical abscess without sinus (principal); K02.9 Dental caries, unspecified; K08.89 Other specified disorders of teeth and supporting structures; I10 Essential (primary) hypertension; Z91.010 Allergy to peanuts; Z87.891 Personal history of nicotine dependence
CPT/HCPCS: 99283